=== PATIENT | female | born 1955 | race Two or more races ===

== ENCOUNTER 2019-05-14 18:58 | Emergency (ER) | payer SELFPAY ==
[~2019-05-14] VITALS: Ht 162.6 cm; Wt 60.6 kg
[2019-05-14] MEDS ORDERED: LISI-167 PO (19:08)
--- NOTE | 2019-05-14 20:39 | NUR ---
THIS IS A 63 YO F/ W/ C/O INTERMITTENT EPITAXIS FOR THE PAST FEW DAYS. PT REPORTS THIS EPISODE IS WORSE AND HAS NOT STOPPED. PT HYPERTENSIVE W/ HX HTN. RESP EVEN AND UNLABORED. NO BLOOD CURRENTLY COMING FROM [facility]. PT HAS SPIT UP SMALL AMOUNT OF BLOOD TWICE. AFRIN GIVEN PER . PT IS RESTING IN CHAIR. CALL LIGHT IN REACH.
[2019-05-14] MEDS ORDERED: OXYMETAZOLINE NASAL SPRAY 0.05%,30ML ONE (20:41)
[2019-05-14] MEDS ORDERED: OXYMETAZOLINE NASAL SPRAY 0.05%, 15ML NAS ONE (21:00)
[2019-05-14 21:58] LABS: BASOPHILS # (AUTO) 0.09 x10^3/uL (0-0.1); BASOPHILS % (AUTO) 1 % (0-1); EOSINOPHILS # (AUTO) 0.23 x10^3/uL (0-0.4); EOSINOPHILS % (AUTO) 2 % (1-7); LYMPHOCYTES # (AUTO) 4.28 x10^3/uL (1-3.4); LYMPHOCYTES % (AUTO) 33 % (22-44); MD NO; MEAN CORPUSCULAR HEMOGLOBIN 32.5 pg (27.0-34.8); MEAN CORPUSCULAR HGB CONC 33.3 g/dL (32.4-35.8); MEAN CORPUSCULAR VOLUME 97.7 fL (80-100); MEAN PLATELET VOLUME 8.3 fL (7.4-10.4); MONOCYTES # (AUTO) 1.06 x10^3/uL (0.2-0.8); MONOCYTES % (AUTO) 8 % (2-9); NEUTROPHILS # (AUTO) 7.23 x10^3/uL (1.8-6.8); NEUTROPHILS % (AUTO) 56 % (42-75); PLATELET COUNT 320 x10^3/uL (130-400); RED BLOOD COUNT 4.43 x10^6/uL (3.82-5.3)
[2019-05-14] MEDS ORDERED: hydrALAzine 20 MG/ML, 1ML IV ONE (22:00)
[2019-05-14] MEDS ORDERED: hydrALAzine 20 MG/ML, 1ML ONE (22:00)
[2019-05-14 22:03] LABS: ALANINE AMINOTRANSFERASE 26 U/L (12-78); ALBUMIN 4.2 g/dL (3.4-5.0); ANION GAP 4 mmol/L (5-15); CALCIUM 9.2 mg/dL (8.5-10.1); CHLORIDE 105 mmol/L (98-107); CREATININE 0.96 mg/dL (0.55-1.02)
--- NOTE | 2019-05-14 22:03 | NUR ---
PT TRANSFERED TO ROOM 19. PIV STARTED. PT MEDICATED PER EMAR. EPITAXISIS STILL PRESENT. PT HYPERTENSIVE 216/106.
[2019-05-14 22:05] LABS: ALKALINE PHOSPHATASE 71 U/L (45-117); BILIRUBIN,TOTAL 0.6 mg/dL (0.2-1.0); TOTAL PROTEIN 8.6 g/dL (6.4-8.2)
--- NOTE | 2019-05-14 22:31 | NUR ---
AFRIN GIVEN PER MD VERBAL ORDER.
--- NOTE | 2019-05-14 22:40 | NUR ---
PT AMBULATED TO THE BR W/ A STEADY GAIT.
[2019-05-14] MEDS ORDERED: LORazepam 2 MG/ML, 1ML ONE (23:18)
[2019-05-14] MEDS ORDERED: LORazepam 2 MG/ML, 1ML IVPush ONE (23:30)
--- NOTE | 2019-05-14 23:31 | NUR ---
REPORT RECEIVED FROM LILIAM LACEY. PLAN OF CARE DISCUSSED. PATIENT MEDICATED PER EMAR, TOLERATED WELL.
[2019-05-15 00:23] VITALS: BP 156/71
[2019-05-15] MEDS ORDERED: LIDOCAINE-MPF 2% ,5ML ONE (00:37)
--- NOTE | 2019-05-15 00:42 | NUR ---
UPON DISCHARGING PATIENT, NOSE STARTED BLEEDING AGAIN. MD KLEBER NOTIFIED. DR. SHAHID TO ROOM TO DISCUSS TREATMENT. DR. SHAHID TO PLACE PACKING AFTER LIDOCAINE SPRAYED.
--- NOTE | 2019-05-15 01:17 | NUR ---
TASK RN: DC EDUCATION PROVIDED, PT DEMONSTRATES UNDERSTANDING. PT TRANSFERED SELF TO WHEELCHAIR. WHEELED TO DC WITH RN. PROVIDED [employer] FOR SAFE TRANSPORT HOME.
== END 2019-05-15 01:23 | disposition home or self-care (01) ==
LOC: ED 05-15 01:01
DX: R04.0 Epistaxis (principal); I10 Essential (primary) hypertension; F10.239 Alcohol dependence with withdrawal, unspecified; F17.200 Nicotine dependence, unspecified, uncomplicated
CPT/HCPCS: 30901; 36415; 80053; 85025; 93005; 96374; 96375; 99284; J0360; J2060

== ENCOUNTER 2019-05-16 15:48 | Emergency (ER) | payer SELFPAY ==
[~2019-05-16] VITALS: Ht 162.6 cm; Wt 57.0 kg
[~2019-05-16 15:48] MED LIST: LISI-167 PO
[2019-05-16 16:00] VITALS: BP 151/82
--- NOTE | 2019-05-16 16:25 | NUR ---
Here for nasal pkg removal placed 05/15. Called ENT office for f/u & unable to be seen due to not being insured. No epistaxis at this time. Does not take blood thinners.
--- NOTE | 2019-05-16 16:50 | NUR ---
Nasal clamp removed. Will continue to monitor for rebleed.
--- NOTE | 2019-05-16 17:36 | NUR ---
Pt provided with information about prescription assistance programs. No further epistaxis since nasal clamp removed. Patient given discharge instructions and they have confirmed that they understand the instructions. Patient ambulatory with steady gait.
== END 2019-05-16 17:38 | disposition home or self-care (01) ==
LOC: ED 17:20
DX: R04.0 Epistaxis (principal); Z76.0 Encounter for issue of repeat prescription; I10 Essential (primary) hypertension; F17.200 Nicotine dependence, unspecified, uncomplicated
CPT/HCPCS: 99283